=== PATIENT | female | born 1985 | race African-American/Black ===

== ENCOUNTER 2021-05-13 18:52 | Emergency (ER) | payer OTHER ==
[~2021-05-13] VITALS: Ht 175.3 cm; Wt 73.0 kg
[2021-05-13] MEDS ORDERED: SODIUM CHLORIDE 0.9% 1,000 ML IV ONE (19:15)
[2021-05-13 20:10] LABS: BASOPHILS % 0.6 % (0.0-2.0); HEMATOCRIT. 36.6 % (36.0-48.0); LYMPHOCYTES % 20.3 % (20.0-50.0); MEAN CORPUSCULAR HEMOGLOBIN 22.8 pg (28.0-32.0); MEAN CORPUSCULAR VOLUME 69.4 fL (81.0-99.0); MEAN PLATELET VOLUME 8.5 fl (7.4-10.4); MONOCYTES % 8.5 % (2.0-8.0); NEUTROPHILS % 69.6 % (40.0-76.0); PLATELET 344 x1000/uL (130-400); RED BLOOD CELL COUNT 5.28 mill/uL (4.2-5.4); RED CELL DISTRIBUTION WIDTH 18.1 % (11.6-14.6)
[2021-05-13 20:16] LABS: CHLORIDE 106 mEq/L (98-107)
[2021-05-13 20:44] LABS: PLATELET ESTIMATE NORMAL
[2021-05-13 21:08] VITALS: BP 106/72
== END 2021-05-13 21:10 | disposition home or self-care (01) ==
LOC: ER 21:03
DX: E86.0 Dehydration (principal); F31.9 Bipolar disorder, unspecified; F20.9 Schizophrenia, unspecified
CPT/HCPCS: 36415; 71045; 80053; 81025; 83880; 84484; 85025; 93005; 96360; 99285; J7030

== ENCOUNTER 2023-05-23 09:29 | Emergency (ER) | payer OTHER ==
[~2023-05-23] VITALS: Ht 167.6 cm; Wt 66.0 kg
[2023-05-23 09:30] VITALS: O2SAT 100
[2023-05-23] MEDS ORDERED: NAPR-1176 MT ×2 (10:55)
[2023-05-23] MEDS ORDERED: IBUP-2029 MT (11:05)
[2023-05-23 13:21] VITALS: BP 124/78; PULSE 88; RESP 18; TEMP 98.7
== END 2023-05-23 13:23 | disposition home or self-care (01) ==
LOC: ER 09:29
DX: S93.402A Sprain of unspecified ligament of left ankle, initial encounter (principal); Z86.59 Personal history of other mental and behavioral disorders; X58.XXXA Exposure to other specified factors, initial encounter; Y93.89 Activity, other specified; Y92.89 Other specified places as the place of occurrence of the external cause; Y99.8 Other external cause status
CPT/HCPCS: 81025; 73590; 73610; 73630; 99284; Z7610